=== PATIENT | male | born 1995 | race Caucasian/White ===

== ENCOUNTER → 2023-02-18 11:29 | Outpatient (CLI) | payer OTHER, SELFPAY | PROVIDERS: Referring Provider Specialist; Visit Provider Specialist | DX: Z01.812 Encounter for preprocedural laboratory examination (principal) | CPT/HCPCS: 36415; 86850; 86900; 86901; 86902 ==

== ENCOUNTER → 2025-07-26 10:08 | Outpatient (CLI) | payer OTHER, SELFPAY | PROVIDERS: PCP Family Medicine; Referring Provider Family Medicine; Visit Provider Family Medicine | DX: F43.10 Post-traumatic stress disorder, unspecified (principal); R53.82 Chronic fatigue, unspecified; I47.9 Paroxysmal tachycardia, unspecified; J32.9 Chronic sinusitis, unspecified; G43.109 Migraine with aura, not intractable, without status migrainosus | CPT/HCPCS: 36415; 84402; 84403; 86038; 86430 ==